=== PATIENT | male | born 1945 | race Caucasian/White ===

== ENCOUNTER → 2016-07-27 | Outpatient (CLI) | payer BC ==
[~2016-07-27] MED LIST: ATOR-54 PO; CHOL100010 PO; DILT-119 PO; FERR325T PO; HYDR25TA4 PO; LISI40TA PO; LOSA100T65 PO; OMEG10007 PO; RANI150C4 PO; SERT50TA PO; SUCR1TAB29 PO; WARF-246 PO; XRL10
[2016-07-27 17:44] LABS: BASO % 1.1 %; BASO ABS # 0.08 K/uL (0-0.2); COMPLETE YES; EOS % 3.1 %; HEMATOCRIT 39.9 % (42-52); IG% 0.3 %; MEAN CELL VOLUME 82.1 fL (80-100); MEAN CORPUSCULAR HEMOGLOBIN 25.9 pg (25-34); MEAN CORPUSCULAR HGB CONC 31.6 g/dl (32-36); MONO % 10.6 %; NEUT % 65.9 %; PLATELET COUNT 322 K/uL (130-400); RED BLOOD COUNT 4.86 M/uL (4.7-6.1); WHITE BLOOD COUNT 7.38 K/uL (4.8-10.8)
== END | disposition home or self-care (01) ==
LOC: C.LABBC 14:40
PROVIDERS: ATTEND Internal Medicine
DX: D64.9 Anemia, unspecified (principal)

== ENCOUNTER → 2016-09-10 | Outpatient (CLI) | payer BC ==
[~2016-09-10] MED LIST changes: +FERR1TAB62 PO; -FERR325T PO
[2016-09-10 14:56] LABS: BASO ABS # 0.06 K/uL (0-0.2); COMPLETE YES; EOS % 2.6 %; HEMATOCRIT 35.6 % (42-52); IG% 0.3 %; LYMPH % 18.7 %; LYMPH ABS # 1.13 K/uL (1.2-3.4); MEAN CELL VOLUME 77.6 fL (80-100); MEAN CORPUSCULAR HEMOGLOBIN 24.6 pg (25-34); MEAN CORPUSCULAR HGB CONC 31.7 g/dl (32-36); MEAN PLATELET VOLUME 10.1 fL (7.4-10.4); MONO % 10.1 %; NEUT % 67.3 %; PLATELET COUNT 397 K/uL (130-400); RED BLOOD COUNT 4.59 M/uL (4.7-6.1); WHITE BLOOD COUNT 6.05 K/uL (4.8-10.8)
[2016-09-10 15:22] LABS: ALT/SGPT 31 U/L (12-78); BLOOD UREA NITROGEN 19 mg/dl (7-18); BUN/CREATININE RATIO 16.9 (10-20); CALCIUM 8.9 mg/dl (8.5-10.1); CARBON DIOXIDE 30 mmol/L (21-32); CHLORIDE 106 mmol/L (98-107); GLUCOSE 106 mg/dl (70-99); POTASSIUM 3.6 mmol/L (3.5-5.1); SODIUM 142 mmol/L (136-145)
[2016-09-10 15:32] LABS: AST/SGOT 20 U/L (15-37); FERRITIN 19.1 ng/ml (8.0-388.0)
[2016-09-10 17:00] LABS: ESTIMATED AVERAGE GLUCOSE 114 mg/dl; HA1C FLAG Normal (Normal)
== END | disposition home or self-care (01) ==
LOC: C.LABBC 12:11
PROVIDERS: ATTEND Internal Medicine
DX: D64.9 Anemia, unspecified (principal); R73.9 Hyperglycemia, unspecified; E78.00 Pure hypercholesterolemia, unspecified; E03.9 Hypothyroidism, unspecified; R97.20 Elevated prostate specific antigen [PSA]

== ENCOUNTER → 2016-12-30 | Outpatient (CLI) | payer BC ==
[~2016-12-30] MED LIST changes: -FERR1TAB62 PO; +FERR325T PO
[2016-12-30 16:45] LABS: BASO % 0.6 %; BASO ABS # 0.04 K/uL (0-0.2); EOS % 2.8 %; HEMATOCRIT 26.4 % (42-52); IG% 0.3 %; MEAN CELL VOLUME 82.5 fL (80-100); MEAN CORPUSCULAR HGB CONC 30.3 g/dl (32-36); MEAN PLATELET VOLUME 9.9 fL (7.4-10.4); MONO % 7.4 %; NEUT % 68.9 %; PLATELET COUNT 365 K/uL (130-400); WHITE BLOOD COUNT 6.49 K/uL (4.8-10.8)
[2016-12-30 17:00] LABS: CHOLESTEROL/HDL RATIO 2.8; FERRITIN 24.6 ng/ml (8.0-388.0); PROSTATE SPECIFIC ANTIGEN 5.27 ng/ml (0.000-4.000)
[2016-12-30 17:26] LABS: COMPLETE YES; OVALOCYTES 1+
== END | disposition home or self-care (01) ==
LOC: C.LABPBG 14:19
PROVIDERS: ATTEND Internal Medicine
DX: D64.9 Anemia, unspecified (principal); R97.20 Elevated prostate specific antigen [PSA]; I48.91 Unspecified atrial fibrillation

== ENCOUNTER → 2017-01-03 | Outpatient (CLI) | payer BC ==
[2017-01-03 13:37] LABS: BASO % 0.5 %; BASO ABS # 0.03 K/uL (0-0.2); EOS % 3.2 %; IG% 0.7 %; LYMPH ABS # 0.88 K/uL (1.2-3.4); MEAN CELL VOLUME 84.4 fL (80-100); MEAN CORPUSCULAR HEMOGLOBIN 25.3 pg (25-34); MEAN PLATELET VOLUME 9.7 fL (7.4-10.4); NEUT % 72.6 %; PLATELET COUNT 388 K/uL (130-400); RED BLOOD COUNT 3.08 M/uL (4.7-6.1); WHITE BLOOD COUNT 5.86 K/uL (4.8-10.8)
[2017-01-03 14:04] LABS: COMPLETE YES; LARGE PLATELETS 1+; OVALOCYTES 1+; POLYCHROMASIA 1+
== END | disposition home or self-care (01) ==
LOC: C.LABBC 11:48
PROVIDERS: ATTEND Internal Medicine
DX: D64.9 Anemia, unspecified (principal)

== ENCOUNTER → 2017-01-10 | Outpatient (CLI) | payer BC ==
[2017-01-10 12:59] LABS: BASO % 0.7 %; BASO ABS # 0.04 K/uL (0-0.2); COMPLETE YES; HEMATOCRIT 30.6 % (42-52); IG% 0.2 %; LYMPH % 14.7 %; LYMPH ABS # 0.83 K/uL (1.2-3.4); MEAN CELL VOLUME 85.2 fL (80-100); MEAN CORPUSCULAR HEMOGLOBIN 25.1 pg (25-34); MEAN CORPUSCULAR HGB CONC 29.4 g/dl (32-36); MEAN PLATELET VOLUME 9.2 fL (7.4-10.4); MONO % 8.7 %; NEUT % 72.7 %; PLATELET COUNT 444 K/uL (130-400); RED BLOOD COUNT 3.59 M/uL (4.7-6.1); WHITE BLOOD COUNT 5.65 K/uL (4.8-10.8)
== END | disposition home or self-care (01) ==
LOC: C.LABPBG 11:10
PROVIDERS: ATTEND Internal Medicine
DX: D64.9 Anemia, unspecified (principal)

== ENCOUNTER → 2017-01-13 | Outpatient (CLI) | payer BC ==
--- NOTE | 2017-01-13 09:07 | DIAGNOSTIC IMAGING REPORT ---
DOUBLE CONTRAST BARIUM ESOPHAGRAM CLINICAL HISTORY: Hiatal hernia. COMPARISON STUDY: Chest CT dated 08/23/2013. TECHNIQUE: A standard air contrast barium esophagram is performed. Multiple spot images of the esophagus are acquired both upright and prone. FINDINGS: The patient swallowed barium and the barium pill without difficulty. The mucosal pattern is normal. There is no evidence of intrinsic or extrinsic mass lesion. No aspiration was seen. The gastroesophageal junction distended normally. There is moderate dysmotility in the mid to distal third. Gastroesophageal reflux was observed. There is a moderate sliding-type hiatal hernia, similar appearance to 2014 CT scan. Fluoroscopy time: 1.7 minutes. Fluoroscopic images: 23 IMPRESSION: 1. Moderate hiatal hernia. 2. Gastroesophageal reflux was observed. 3. Moderate dysmotility is noted in the distal esophagus. Electronically signed by: Severo Harmon M.D. 01/13/2017 9:05 AM Dictated Date/Time: 01/13/2017 9:02 AM
== END | disposition home or self-care (01) ==
LOC: C.RAD 08:26
PROVIDERS: ATTEND Surgery
DX: K44.9 Diaphragmatic hernia without obstruction or gangrene (principal); K21.9 Gastro-esophageal reflux disease without esophagitis; K22.4 Dyskinesia of esophagus

== ENCOUNTER 2017-01-26 09:24 | Inpatient (IN) | payer BC, OTHER ==
[2017-01-13 10:15] VITALS: BMI 37.0
--- NOTE | 2017-01-13 10:48 | PAT Medication Instructions ---
Service Date Jan 13, 2017. Current Home Medication List Atorvastatin (Lipitor), 20 MG PO QDD Diltiazem Hcl Ext Rel (Tiazac), 360 MG PO QDD Hydrochlorothiazide (Hctz), 25 MG PO QDD Lisinopril (Zestril), 40 MG PO QDD Losartan Potassium (Cozaar), 100 MG PO QDD Ranitidine Hcl (Ranitidine Hcl), 150 MG PO BID PRN Rivaroxaban (Xarelto), SEE NOTES Sertraline Hcl (Zoloft), 100 MG PO QDD Sucralfate (Carafate), 1 GM PO BID Medication Instructions For Your Scheduled Surgery - Check with surgeon/last repairer helper/PCP for instructions: Rivaroxaban (Xarelto), SEE NOTES - Hold the following medications the morning of surgery: Sucralfate (Carafate), 1 GM PO BID Ranitidine Hcl (Ranitidine Hcl), 150 MG PO BID PRN - Hold the following medications as scheduled the night before surgery: Losartan Potassium (Cozaar), 100 MG PO QDD Lisinopril (Zestril), 40 MG PO QDD - Take the following medications as scheduled the night before surgery: Sucralfate (Carafate), 1 GM PO BID Sertraline Hcl (Zoloft), 100 MG PO QDD Ranitidine Hcl (Ranitidine Hcl), 150 MG PO BID PRN Hydrochlorothiazide (Hctz), 25 MG PO QDD Diltiazem Hcl Ext Rel (Tiazac), 360 MG PO QDD Atorvastatin (Lipitor), 20 MG PO QDD If you have any questions please call us at [phone] or [phone] or [phone]
[2017-01-13 12:00] LABS: CALCIUM 8.8 mg/dl (8.5-10.1); CREATININE 1.1 mg/dl (0.60-1.40); POTASSIUM 3.5 mmol/L (3.5-5.1)
[2017-01-13 12:01] LABS: PROTHROMBIN TIME (PATIENT) 10.6 SECONDS (9.0-12.0)
[2017-01-13 12:45] LABS: HEMATOCRIT 34.1 % (42-52); MEAN CELL VOLUME 84.8 fL (80-100); MEAN CORPUSCULAR HEMOGLOBIN 24.4 pg (25-34); MEAN CORPUSCULAR HGB CONC 28.7 g/dl (32-36); MEAN PLATELET VOLUME 9.5 fL (7.4-10.4); PLATELET COUNT 448 K/uL (130-400); RED BLOOD COUNT 4.02 M/uL (4.7-6.1); WHITE BLOOD COUNT 5.57 K/uL (4.8-10.8)
[2017-01-13 13:33] LABS: BASO % 1.1 %; BASO ABS # 0.06 K/uL (0-0.2); COMPLETE YES; EOS % 1.8 %; HYPOCHROMIA PRESENT; IG% 0.2 %; LYMPH ABS # 0.89 K/uL (1.2-3.4); NEUT % 71.9 %
[2017-01-26] VITALS (9 sets, daily range): BP systolic 134–150; BP diastolic 83–93; PULSE 62–88; TEMP 36.4–36.7; O2SAT 88–99; Ht 175.3 cm; Wt 116.0 kg
[~2017-01-26] VITALS: Ht 175.3 cm; Wt 116.0 kg
[~2017-01-26 09:24] MED LIST changes: -CHOL100010 PO; -FERR325T PO; +LACTATED RINGER'S 1000ML 1,000 ML IV SCH; -LISI40TA PO; -OMEG10007 PO; -WARF-246 PO
[2017-01-26] MEDS ORDERED: FENTANYL CITRATE INJ 50 MCG/1 ML 2 ML VIAL ONE (10:22)
[2017-01-26] MEDS ORDERED: MIDAZOLAM HCL 1 MG/ML 2ML VIAL ONE (10:22)
--- NOTE | 2017-01-26 11:46 | History & Physical Bridge Note ---
H&P Re-Evaluation Bridge Note: I have examined the patient, reviewed the History & Physical and in the interval since the performance of the History & Physical I have noted the following changes of clinical significance: No changes noted
--- NOTE | 2017-01-26 12:06 | History & Physical Bridge Note ---
H&P Re-Evaluation Bridge Note: I have examined the patient, reviewed the History & Physical and in the interval since the performance of the History & Physical I have noted the following changes of clinical significance:Will perform an EGD for post- operative assessment.No changes noted
[2017-01-26] MEDS ORDERED: PHENYLEPHRINE 100MCG/ML 5ML SYR IV PRN (13:15)
[2017-01-26] MEDS ORDERED: ATROPINE SULFATE 0.1 MG/ML 5ML SYR IV PRN (13:15)
[2017-01-26] MEDS ORDERED: EpHEDrine SULFATE INJ 50 MG/ML AMP IV PRN (13:15)
[2017-01-26] MEDS ORDERED: ONDANSETRON INJ 2 MG/ML 2 ML VIAL IV PRN ×2 (13:15→19:00)
[2017-01-26] MEDS ORDERED: HYDROmorphone INJ 2 MG/ML SYR/VIAL IV PRN (13:15)
[2017-01-26] MEDS ORDERED: EpHEDrine SULFATE 50MG/5ML SYR ONE (13:35)
[2017-01-26] MEDS ORDERED: PROPOFOL IV EMULSION 10 MG/ML 20 ML VIAL IV ONE (13:35)
[2017-01-26] MEDS ORDERED: ROCURONIUM BROMIDE 10 MG/ML 5 ML VIAL ONE ×2 (13:35→18:40)
[2017-01-26] MEDS ORDERED: HYDROmorphone INJ 2 MG/ML SYR/VIAL ONE (13:36)
[2017-01-26] MEDS ORDERED: SODIUM CHLORIDE 0.9% INJ 10 ML VIAL ONE (13:36)
[2017-01-26] MEDS ORDERED: KETAMINE HCL INJ 50 MG/ML 10 ML VIAL ONE (13:54)
[2017-01-26] MEDS ORDERED: PHENYLEPHRINE HCL INJ 10 MG/ML VIAL ONE (18:43)
[2017-01-26] MEDS ORDERED: GLYCOPYRROLATE INJ 0.2 MG/ML VIAL ONE (18:43)
[2017-01-26] MEDS ORDERED: NEOSTIGMINE METHYLSULFATE 5 MG/5 ML SYR ONE (18:43)
[2017-01-26] MEDS ORDERED: RANITIDINE HCL 150 MG TAB PO PRN (19:00)
[2017-01-26] MEDS ORDERED: KETOROLAC TROMETHAMINE 15 MG/ML VIAL IV PRN (19:00)
--- NOTE | 2017-01-26 20:11 | Anesthesiology Progress Note ---
Anesthesia Post Op Note Date & Time Jan 26, 2017 at 20:11 Vital Signs Pain Intensity: 0 Vital Signs Past 12 Hours Date Time Temp Pulse Resp B/P (MAP) Pulse Ox O2 Delivery O2 Flow Rate FiO2 01/26/17 20:05 81 21 136/93 98 Oxymask 4 01/26/17 19:55 83 20 160/93 93 Oxymask 4 01/26/17 19:45 81 18 158/93 93 Oxymask 4 01/26/17 19:35 80 16 160/88 93 Oxymask 6 01/26/17 19:25 79 23 162/88 94 Oxymask 10 01/26/17 19:15 86 20 173/86 94 Oxymask 10 01/26/17 19:05 36.6 80 16 156/76 95 Oxymask 10 01/26/17 09:46 36.7 62 16 142/83 (102) 94 Room Air Notes Mental Status: alert / awake / arousable, participated in evaluation Pt Amnestic to Procedure: Yes Nausea / Vomiting: adequately controlled Pain: adequately controlled Airway Patency, RR, SpO2: stable & adequate BP & HR: stable & adequate Hydration State: stable & adequate Anesthetic Complications: no major complications apparent
[2017-01-26] MEDS ORDERED: CEFAZOLIN IV 2,000 MG in DEXTROSE 5% 50ML 100 ML IV SCH (22:00)
[2017-01-26] MEDS: D5W AND 1/2NSS 1,000 ML IV SCH (22:05)
[2017-01-26] MEDS: SERTRALINE HCL 50 MG TAB PO SCH (22:07)
[2017-01-26] MEDS: ACETAMINOPHEN IV 1,000 MG in EMPTY BAG 0 ML IV SCH (22:07)
[2017-01-26] MEDS: DOCUSATE SODIUM 100 MG CAP PO SCH (22:08)
[2017-01-26] MEDS: SUCRALFATE 1 GM TAB PO SCH (22:08)
[2017-01-26] MEDS: DILTIAZEM HCL (TIAzac) 180 MG CAPCR PO SCH (22:09)
[2017-01-26] MEDS: METOCLOPRAMIDE HCL INJ 5 MG/ML 2 ML VIAL IV. SCH (22:33)
[2017-01-26] MEDS: CEFAZOLIN IV 2,000 MG in DEXTROSE 5% 50ML 50 ML IV SCH (22:33)
--- NOTE | 2017-01-26 23:33 | OPERATIVE REPORT ---
DATE OF OPERATION: 01/26/2017 PREOPERATIVE DIAGNOSIS: Symptomatic hiatal hernia with gastroesophageal reflux disease. POSTOPERATIVE DIAGNOSIS: Same. PROCEDURE: Robotic-assisted laparoscopic Елена fundoplication with reduction of hiatal hernia. SURGEON: Dr. Mendez. PATIENT ACCOUNTS SPECIALIST: YUNI Colunga. ANESTHESIA: General anesthesia endotracheal intubation. INDICATION FOR PROCEDURE AND FINDINGS: This is a 71-year-old male, who has symptomatic esophageal ulcers from gastroesophageal reflux disease and has actually been anemic from this. He has been worked up and this has been determined to be his cause. I saw the patient in the office and we decided to proceed with a minimally invasive Елена fundoplication. His esophageal motility appeared normal. On 01/26/2015, the patient underwent an uncomplicated robot-assisted laparoscopic Елена fundoplication. His hiatal hernia was a bit larger than I thought from his barium swallow. I removed the sac. We had a tension-free anastomosis. He had a large diaphragmatic hernia; however, there was no tension in the posterior crura and I reapproximated these. I did an esophagogastroscopy at the conclusion of the case. I was able to get across the repair nicely and we saw no evidence of a leak. He tolerated it well and was extubated in the room with negligible blood loss. PROCEDURE: The patient brought to the operating room and laid in supine position. General anesthesia induced and endotracheal intubation was performed. After prepping and draping in the usual sterile fashion, we made 5 different incisions. A 5-mm incision for the liver retractor laterally and then I made two 12 mm incisions and two 28-mm incisions. I insufflated carbon dioxide. The patient had a laparoscopic cholecystectomy in the past, but I was surprised to see he really had no evidence of any adhesions. Before docking the robot, we placed the patient in a fairly good reverse Trendelenburg. We could see the GE junction nicely with the liver retractor. We then, using a Harmonic scalpel, took down the peritoneum around this and noted a very large hernia actually. He had a large amount of his stomach in there and we were able to reduce it nicely. Starting anteriorly along the right side, I identified the crura and divided the layers of the sac and then bluntly and sharply were able to bring the incision around anteriorly and I removed a very large sac. The patient also had a large amount of omentum, which was stuck to this, which was very difficult to get off. Finally, after meticulous dissection and removing of the hernia sac as well the gastroesophageal fat pad, we had identified the GE junction quite nicely. I put a single [id number] suture in the posterior crura and when reapproximating the left and right crura, I was surprised that this large hernia came together so easily with just 1 suture. I placed another suture, but I felt that it was too tight and so, I removed it and placed a simple suture, a bit closer to my first suture, a 0 silk. This appeared to be loose enough. I marked an area of 6 cm from the gastroesophageal junction and 6 cm from the greater curvature, anteriorly and posteriorly, with long sutures. I had freed up enough that I was easily able to bring the fundus around. There was no tension on this at all. I placed 2 sutures distally and included the esophagus in the first two and then I placed a simple fundus suture anteriorly and posteriorly. I then used 1 tacking suture of the wrap to the anterior diaphragm. The patient tolerated it well. I did do an esophagogastrostomy and coming down, I saw no evidence of any injuries. I was able to get across the repair quite nicely. I did not see evidence of a hiatal hernia. We did assess this for a leak by insufflating CO2 with the patient in Trendelenburg and warm saline around the GE junction. We saw no evidence of any bubbling. I then removed the esophagoscope. The patient tolerated it well. The two 12-mm incisions were closed with a #1 PDS with Endo Close. I then used a 4-0 Monocryl to close the skin edges of the incisions and we placed a topical glue on the skin. He tolerated it quite well. I attest to the content of the Intraoperative Record and any orders documented therein. Any exceptions are noted below. BHANU
[2017-01-27] VITALS (10 sets, daily range): BP systolic 118–129; BP diastolic 64–79; PULSE 69–106; TEMP 36.5–36.8; O2SAT 86–97
[2017-01-27] MEDS: ACETAMINOPHEN IV 1,000 MG in EMPTY BAG 0 ML IV SCH ×2 (05:35→13:40)
[2017-01-27] MEDS: METOCLOPRAMIDE HCL INJ 5 MG/ML 2 ML VIAL IV. SCH ×2 (05:36→13:43)
[2017-01-27] MEDS: CEFAZOLIN IV 2,000 MG in DEXTROSE 5% 50ML 50 ML IV SCH (05:58)
[2017-01-27] MEDS: D5W AND 1/2NSS 1,000 ML IV SCH (06:01)
[2017-01-27 06:37] LABS: COMPLETE YES; HEMATOCRIT 34.7 % (42-52); IG% 0.3 %; LYMPH % 3.6 %; LYMPH ABS # 0.36 K/uL (1.2-3.4); MEAN CELL VOLUME 81.8 fL (80-100); MEAN CORPUSCULAR HEMOGLOBIN 25.5 pg (25-34); MEAN CORPUSCULAR HGB CONC 31.1 g/dl (32-36); MEAN PLATELET VOLUME 9.5 fL (7.4-10.4); MONO % 8.3 %; NEUT % 87.8 %; PLATELET COUNT 250 K/uL (130-400); RED BLOOD COUNT 4.24 M/uL (4.7-6.1); WHITE BLOOD COUNT 9.87 K/uL (4.8-10.8)
[2017-01-27 07:11] LABS: CALCIUM 8.1 mg/dl (8.5-10.1); CREATININE 1.6 mg/dl (0.60-1.40); POTASSIUM 4.1 mmol/L (3.5-5.1)
[2017-01-27] MEDS: DOCUSATE SODIUM 100 MG CAP PO SCH ×2 (08:27→20:35)
[2017-01-27] MEDS: SUCRALFATE 1 GM TAB PO SCH ×2 (08:28→20:35)
--- NOTE | 2017-01-27 08:32 | DIAGNOSTIC IMAGING REPORT ---
CHEST ONE VIEW PORTABLE HISTORY: hypoxia COMPARISON: Chest 10/28/2015. FINDINGS: The heart remains mildly enlarged. Moderate hiatus hernia, unchanged. Bibasilar densities likely represent subsegmental atelectasis. No pleural effusions. No pneumothorax. Prominence of the superior mediastinum is likely due to the portable technique. This is similar to the prior study. IMPRESSION: 1. Stable mild cardiomegaly. 2. Moderate hiatus hernia. 3. Left basilar linear densities favor subsegmental atelectasis. Electronically signed by: Severo Holguin M.D. 01/27/2017 8:31 AM Dictated Date/Time: 01/27/2017 8:28 AM
[2017-01-27] MEDS ORDERED: ENOXAPARIN 40 MG/0.4 ML SYR SQ SCH (09:00)
--- NOTE | 2017-01-27 09:15 | DIAGNOSTIC IMAGING REPORT ---
(BARIUM SWALLOW) ESOPHAGUS CLINICAL HISTORY: Елена fundoplication COMPARISON STUDY: Barium swallow 01/13/2017. FLUOROSCOPY TIME: 1.7 minutes. 13 images submitted. FINDINGS: The patient swallowed Optiray 300 without difficulty. There is moderate esophageal dysmotility. The hiatal hernia has been reduced status post Елена fundoplication. There is moderate narrowing at the proximal esophagus at the site of fundoplication. This results in a column of contrast remaining within the mid to distal esophagus with slow transit time into the stomach. However, the esophagus is not significantly distended. No extraluminal contrast to suggest a leak. IMPRESSION: 1. No extraluminal contrast to suggest a leak status post Елена fundal complication. 2. There is moderate narrowing at the proximal esophagus at the site of fundoplication. This results in a column of contrast remaining within the mid to distal esophagus with slow transit time into the stomach. However, the esophagus is not significantly distended. Electronically signed by: Severo Holguin M.D. 01/27/2017 9:14 AM Dictated Date/Time: 01/27/2017 9:11 AM
--- NOTE | 2017-01-27 10:33 | Anesthesiology Progress Note ---
Anesthesia Post Op Note Date & Time Jan 27, 2017 at 10:32 Vital Signs Pain Intensity: 3.0 Vital Signs Past 12 Hours Date Time Temp Pulse Resp B/P (MAP) Pulse Ox O2 Delivery O2 Flow Rate FiO2 01/27/17 07:45 96 Nasal Cannula 3.0 01/27/17 07:20 36.8 82 16 120/72 (88) 96 Nasal Cannula 3.0 01/27/17 06:53 106 93 Nasal Cannula 3.0 01/27/17 04:00 36.7 85 16 126/79 (95) 97 Nasal Cannula 3.0 01/27/17 02:00 36.5 82 16 128/78 (95) 96 Nasal Cannula 3.0 01/26/17 23:40 Nasal Cannula 3.0 01/26/17 23:12 96 3.0 01/26/17 23:11 96 4.0 01/26/17 23:10 88 3.0 Notes Mental Status: alert / awake / arousable, participated in evaluation Pt Amnestic to Procedure: Yes Nausea / Vomiting: adequately controlled Pain: adequately controlled Airway Patency, RR, SpO2: stable & adequate BP & HR: stable & adequate Hydration State: stable & adequate Anesthetic Complications: no major complications apparent
--- NOTE | 2017-01-27 16:28 | PROGRESS NOTE ---
DATE: 01/27/2017 HISTORY OF PRESENT ILLNESS: Mr. Camilo was seen today 1 day after a robotic-assisted laparoscopic Елена fundoplication for symptomatic gastroesophageal reflux disease and esophageal ulcers with anemia. He looks fine except he is hypoxic. He has really not been able to get off of oxygen since the surgery. His chest x-ray shows just volume loss. He is not wheezing. He is tolerating clear liquids well. A barium swallow shows the wrap in good position and no evidence of extravasation. He had some appropriate narrowing at the repair site. I had a long talk with the patient and his this afternoon in the hospital. I am going to keep him another day and see if we can wean him off the oxygen. He may have to go home on it we will see. I am going to gently diurese him tonight also.
[2017-01-27] MEDS ORDERED: FUROSEMIDE INJ 10 MG in SYRINGE 0 ML IV SCH (17:00)
[2017-01-27] MEDS: DILTIAZEM HCL (TIAzac) 180 MG CAPCR PO SCH (17:27)
[2017-01-27] MEDS: SERTRALINE HCL 50 MG TAB PO SCH (17:28)
[2017-01-27] MEDS ORDERED: LOSARTAN POTASSIUM 50 MG TAB PO SCH (17:45)
[2017-01-27] MEDS ORDERED: ATORVASTATIN 20 MG TAB PO SCH (17:45)
[2017-01-28] VITALS (8 sets, daily range): BP systolic 121–134; BP diastolic 72–89; PULSE 75; TEMP 36.6–36.7; O2SAT 81–94
--- NOTE | 2017-01-28 06:57 | Clinical Documentation Query ---
CLINICAL DOCUMENTATION QUERY QUERY 1 OF 3 71 yo male presenting with a "hiatal hernia with anemia secondary to Yaya's ulcers" on H&P. In your clinical opinion is this patient being managed for: ( ) Yaya's ulcers with bleeding/hemorrhage ( ) Other explanation of clinical findings (Please Explain) ( ) Unable to determine (Please Define) ( X ) Need to Discuss ( ) Not Agree The medical record reflects the following clinical findings, treatment, and risk factors. Clinical Indicators:71 yo male presenting with a "hiatal hernia with anemia secondary to Yaya's ulcers" on H&P. Initial H&H documented were 9.8/34.1. Treatment:Robotic-assisted laparoscopic Елена fundoplication with reduction of hiatal hernia; monitor CBCs Risk Factors:Age, long-term anticoag therapy, anemia, new onset afib. Hx of PE, thrombocytosis QUERY 2 OF 3 In your clinical opinion is this patient being managed for: ( ) Acute kidney failure ( ) Other explanation of clinical findings (Please Explain) ( ) Unable to determine (Please Define) ( X ) Need to Discuss ( ) Not Agree The medical record reflects the following clinical findings, treatment, and risk factors. Clinical Indicators:01/13 baseline BUN/Creat 15/1.10 trending up post-operatively to 22/1.60 Treatment:IV fluids, serial Creatinine levels Risk Factors:Age, surgery, new onset A-Fib Acute Renal Failure criteria: * Abrupt (within 48 h) reduction in kidney function currently defined as an absolute increase in serum creatinine of 0.3 mg/dL or more (=26.4 umol/L) or *A percentage increase in serum creatinine of 50% or more (1.5-fold from baseline) or * A reduction in urine output (documented oliguria of < 0.5 mL/kg/h for >6 h) QUERY 3 OF 3 On 01/27, the patient is documented as being hypoxic, unable to wean off O2, and was treated with IV Lasix. In your clinical opinion is this patient being managed for: ( ) Acute preserved EF heart failure evidenced by hypoxia and bibasilar crackles, treated with IV Lasix ( X ) Other explanation of clinical findings (Please Explain) ( ) Unable to determine (Please Define) ( ) Need to Discuss ( ) Not Agree The medical record reflects the following clinical findings, treatment, and risk factors. Clinical Indicators:As above. pulse ox 86-88% on 3L O2. 2012 echo showed EF 65%, mild dilated right ventricle. 01/27 nursing assessment documents bilateral base crackles/diminished and 1+ edma to bilateral extremities Surgical day >3.5 litres + fluid balance. Treatment:Lasix IV, I/O Risk Factors:Age, interoperative fluid resuscitation, Please clarify and document your clinical opinion in the progress notes and discharge summary. Terms such as "probable", "suspected", "likely", "questionable", "possible", or "still to be ruled out" are acceptable. IF IN AGREEMENT, YOU MUST DOCUMENT ABOVE DIAGNOSTIC STATEMENT IN DAILY PROGRESS NOTES AND DISCHARGE SUMMARY. This document is not part of the patient's record. Thank You, Brandie Kimbrough RN [phone]
[2017-01-28] MEDS: SUCRALFATE 1 GM TAB PO SCH (08:54)
[2017-01-28] MEDS: DOCUSATE SODIUM 100 MG CAP PO SCH (08:54)
[2017-01-28] MEDS ORDERED: RIVAROXABAN 20 MG TAB PO SCH (09:00)
--- NOTE | 2017-01-28 09:07 | DIAGNOSTIC IMAGING REPORT ---
CHEST 2 VIEWS ROUTINE HISTORY: hypoxia COMPARISON: Chest 01/27/2017. FINDINGS: There are low lung volumes. No pneumothorax. The heart remains enlarged. Moderate hiatus hernia, unchanged. Left basilar linear densities are similar to the prior study and favor scarring. No new focal lung consolidations to suggest pneumonia. No evidence for pulmonary edema. Oral contrast within the bowel. A few mild anterior wedge-shaped compression deformities within the mid to lower thoracic spine. These are likely old. IMPRESSION: No significant change compared to the prior study. No acute process. Cardiomegaly and a moderate hiatus hernia again noted. Electronically signed by: Severo Holguin M.D. 01/28/2017 9:05 AM Dictated Date/Time: 01/28/2017 9:03 AM
[2017-01-28] MEDS ORDERED: OXYCODONE/ACETAMINOPHEN 5-325 TAB ONE (09:15)
[2017-01-28] MEDS ORDERED: OXYCODONE/ACETAMINOPHEN 5-325 TAB PO PRN (09:15)
[2017-01-28 11:01] LABS: HEMATOCRIT 36.9 % (42-52); MEAN CELL VOLUME 81.5 fL (80-100); MEAN CORPUSCULAR HEMOGLOBIN 24.7 pg (25-34); MEAN PLATELET VOLUME 9.8 fL (7.4-10.4); PLATELET COUNT 279 K/uL (130-400); RED BLOOD COUNT 4.53 M/uL (4.7-6.1); WHITE BLOOD COUNT 13.16 K/uL (4.8-10.8)
[2017-01-28 11:17] LABS: BUN/CREATININE RATIO 21.4 (10-20); CALCIUM 8.4 mg/dl (8.5-10.1); CREATININE 1.1 mg/dl (0.60-1.40); MEAN CORPUSCULAR HGB CONC 30.4 g/dl (32-36); PHOSPHORUS 1.8 mg/dl (2.5-4.9); POTASSIUM 3.8 mmol/L (3.5-5.1)
--- NOTE | 2017-01-28 17:12 | Discharge Instructions ---
Discharge Instructions Date of Service Jan 28, 2017. Admission Reason for Admission: Hiatal Hernia Discharge Discharge Diagnosis / Problem: Same Discharge Goals Goal(s): Learn about illness (Will need to stay on liquids / soft diet until I clear you.) Activity Recommendations Activity Limitations: as noted below Lifting Limitations: gradually increase as tolerated Exercise/Sports Limitations: gradually increase as tolerated May Resume Sexual Activity: when tolerated Shower/Bathe: tomorrow Driving or Machine Use: resume 3 days after discharge . Instructions / Follow-Up Instructions / Follow-Up Dr Mendez's office will call you and make an appointment to see you in two weeks. May shower starting tomorrow. No heavy lifting. Current Hospital Diet Patient's current hospital diet: Clear Liquid Diet Discharge Diet Recommended Diet: Full Liquid Diet (You may not eat ANYTHING which requires chewing.) Procedures Procedures Performed: Robotic Assisted Laparoscopic Елена Fundoplilcation; Repair of Hiatal Hernia with Esophagogastroduodenoscopy Pending Studies Studies pending at discharge: no Laboratory Results Lipid Panel Test 12/30/16 14:25 Range/Units Triglycerides Level 105 0-150 mg/dl Cholesterol Level 121 0-200 mg/dl HDL Cholesterol 44 mg/dl Cholesterol/HDL Ratio 2.8 LDL Cholesterol, Calculated 56 mg/dl Medical Emergencies . Who to Call and When: Medical Emergencies: If at any time you feel your situation is an emergency, please call 911 immediately. . Non-Emergent Contact Non-Emergency issues call your: Surgeon ([phone] Mendez) Call Non-Emergent contact if: you have a fever, temperature is above 101, your pain is worsening, wound has increased drainage, wound has increased redness, wound has increased pain [phone] Mendez . "Provider Documentation" section prepared by Tung Mendez. . VTE Core Measure Inpt VTE Proph given/why not?: Enoxaparin (Lovenox)SQ, Other Anticoagulation, SCD's
--- NOTE | 2017-01-28 20:31 | DISCHARGE SUMMARY ---
DISCHARGE DIAGNOSES: 1. Gastroesophageal reflux, hiatal hernia. 2. Yaya ulcer secondary to #1. 3. Renal insufficiency. 4. Hypoxemia secondary to hypoventilation. 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 He has been worked up completely. He has a hiatal hernia, has symptomatic esophageal reflux with these Yaya ulcers. I had a long talk with the patient and his in the office, we elected to proceed with a robotic Елена fundoplication. On 01/26/2017, the patient was brought to the operating room and underwent a robot-assisted laparoscopic Елена fundoplication. He had a fairly large hernia. I removed the sac in its entirety but this was a meticulous dissection. He had a large amount of omentum which was stuck up. We got all of this down. I then did posterior crural sutures x2. I then did a fairly loose wrap and it looked quite good under no tension. I did an esophagogastroscopy in the operating room and this went through the repair site easily. There was no evidence of hiatal hernia, it appeared to be completely reduced. The patient really had very little in the way of pain and wakened in fine fashion from his general anesthesia. However, he was hypoxic. On 3 liters, he was only satting in the low 90s. He was tolerating clear liquids. We got a barium swallow the morning after surgery, it looked quite good actually. The patient also had a bump in his creatinine from 1.1 to 1.6, been concerned about this and I watched him for a 2nd night and by the 2nd postoperative day, his saturations had improved and he was off the oxygen. His x-ray showed no infiltrate. I think he was suffering from hypoventilation, even though we were very aggressive in getting him to ambulate and working on his incentive spirometer. He never did have any wheezing. His incisions were clean, his bowel sounds were good. He has tolerated liquid clears quite nicely. I discharged him home on postoperative day 2. He had been weaned off his oxygen. He is really not having pain. I did not send him home with narcotics. I will see him back in the office in 2 weeks for followup. I gave him very strict diet instructions, clear liquids. I was quite happy with his response to this procedure.
== END 2017-01-28 18:00 | disposition home or self-care (01) | DRG 328 ==
LOC: C.ACU 09:24 → C.MSW 09:45 → ENRESERV 19:36
PROVIDERS: ADMIT Surgery; ATTEND Surgery
PROC: 0DV44ZZ Restriction of Esophagogastric Junction, Percutaneous Endoscopic Approach (ICD-10-PCS; principal; 2017-01-26 11:00)
PROC: 8E0W4CZ Robotic Assisted Procedure of Trunk Region, Percutaneous Endoscopic Approach (ICD-10-PCS; principal; 2017-01-26 11:00)
DX: K44.9 Diaphragmatic hernia without obstruction or gangrene (principal); K25.7 Chronic gastric ulcer without hemorrhage or perforation; K21.9 Gastro-esophageal reflux disease without esophagitis; D50.0 Iron deficiency anemia secondary to blood loss (chronic); N28.9 Disorder of kidney and ureter, unspecified; R06.89 Other abnormalities of breathing; R09.02 Hypoxemia; I48.0 Paroxysmal atrial fibrillation; I10 Essential (primary) hypertension; E78.00 Pure hypercholesterolemia, unspecified; F43.20 Adjustment disorder, unspecified; Z86.711 Personal history of pulmonary embolism; Z79.01 Long term (current) use of anticoagulants; Z88.5 Allergy status to narcotic agent; Z82.49 Family history of ischemic heart disease and other diseases of the circulatory system; Z82.3 Family history of stroke

== ENCOUNTER → 2017-08-09 | Outpatient (CLI) | payer BC ==
[~2017-08-09] MED LIST changes: -LACTATED RINGER'S 1000ML 1,000 ML IV SCH; -SUCR1TAB29 PO
--- NOTE | 2017-08-09 10:36 | DIAGNOSTIC IMAGING REPORT ---
(BARIUM SWALLOW) ESOPHAGUS CLINICAL HISTORY: 72 years-old Male presenting with K44.9 Hiatal herniaS/P LAP [id number], status post Елена fundoplication 6 months ago, cholecystectomy. TECHNIQUE: A standard air contrast barium esophagram is performed. Multiple spot images of the esophagus are acquired both upright and prone. COMPARISON: 01/27/2017. FINDINGS: The patient was able to ingest barium, however, the barium pill was held up at the gastroesophageal junction. Normal mucosal pattern. No evidence of intrinsic or extrinsic mass lesion. No aspiration observed. Few tertiary contractions visualized. Small hiatal hernia. Normal distention of the gastroesophageal junction. Fluoroscopy dosage (mGy): Not available. Fluoroscopy time: 2 minutes. Number of fluoroscopic spot images: 21. IMPRESSION: 1. Tertiary contractions of the esophagus suggests dysmotility, likely presbyesophagus. 2. Small hiatal hernia. The appearance could suggest slippage of the Елена fundoplication. Electronically signed by: Reynaldo Garcia M.D. 08/09/2017 10:35 AM Dictated Date/Time: 08/09/2017 9:07 AM
== END | disposition home or self-care (01) ==
LOC: C.RAD 08:32
PROVIDERS: ATTEND Surgery
DX: K44.9 Diaphragmatic hernia without obstruction or gangrene (principal)

== ENCOUNTER → 2017-08-25 | Outpatient (CLI) | payer BC | END | disposition home or self-care (01) | LOC: C.LABPBG 10:05 | PROVIDERS: ATTEND Internal Medicine Cardiovascular Disease | DX: E78.00 Pure hypercholesterolemia, unspecified (principal) ==

== ENCOUNTER → 2017-10-10 | Outpatient (CLI) | payer BC ==
[2017-10-10 13:04] LABS: MEAN CELL VOLUME 83.7 fL (80-100); MEAN CORPUSCULAR HEMOGLOBIN 27.2 pg (25-34); MEAN CORPUSCULAR HGB CONC 32.6 g/dl (32-36); MEAN PLATELET VOLUME 10.4 fL (7.4-10.4); PLATELET COUNT 296 K/uL (130-400); RED CELL DISTRIBUTION WIDTH CV 13.7 % (11.5-14.5); RED CELL DISTRIBUTION WIDTH SD 41.5 fL (36.4-46.3); WHITE BLOOD COUNT 6.07 K/uL (4.8-10.8)
== END | disposition home or self-care (01) ==
LOC: C.LABPBG 08:58
PROVIDERS: ATTEND Internal Medicine
DX: D64.9 Anemia, unspecified (principal); E78.00 Pure hypercholesterolemia, unspecified; E03.9 Hypothyroidism, unspecified

== ENCOUNTER 2021-08-04 08:23 | Observation (INO) ==
--- NOTE | 2021-03-02 10:52 | PAT Medication Instructions ---
Medication Instructions Date of Service March 02, 2021 Home Medications Medication Instructions Recorded cephalexin 500 mg tablet 500 mg PO ONCE #4 tab 07/18/19 atorvastatin 20 mg tablet 20 mg PO QDL #90 tab 04/28/20 hydrochlorothiazide 25 mg tablet 25 mg PO DAILY #90 tab 04/28/20 famotidine 40 mg tablet 40 mg PO DAILY #90 tab 07/09/20 diltiazem HCl 360 mg capsule,24 360 mg PO DAILY #90 cap 07/10/20 hr,extended release sertraline 100 mg tablet 150 mg PO DAILY #90 tab 08/04/20 losartan 100 mg tablet 100 mg PO DAILY #90 tab 01/26/21 rivaroxaban 20 mg tablet (Xarelto) 20 mg PO DAILY #90 tab 01/26/21 cephalexin 500 mg tablet 500 mg PO ONCE atorvastatin 20 mg tablet 20 mg PO QDL hydrochlorothiazide 25 mg tablet 25 mg PO DAILY famotidine 40 mg tablet 40 mg PO DAILY diltiazem HCl 360 mg capsule,24 hr,extended release 360 mg PO DAILY sertraline 100 mg tablet 150 mg PO DAILY losartan 100 mg tablet 100 mg PO DAILY rivaroxaban 20 mg tablet (Xarelto) 20 mg PO DAILY Continue as directed cephalexin 500 mg tablet 500 mg PO ONCE atorvastatin 20 mg tablet 20 mg PO QDL ASK your prescriber and surgeon rivaroxaban 20 mg tablet (Xarelto) 20 mg PO DAILY (must be off medication for at least 72 hours in order to get spinal anesthesia) DO NOT take the morning of surgery hydrochlorothiazide 25 mg tablet 25 mg PO DAILY losartan 100 mg tablet 100 mg PO DAILY Take morning of surgery With a small sip of water, OTHERWISE NOTHING TO EAT OR DRINK AFTER MIDNIGHT: famotidine 40 mg tablet 40 mg PO DAILY diltiazem HCl 360 mg capsule,24 hr,extended release 360 mg PO DAILY sertraline 100 mg tablet 150 mg PO DAILY Other Notes If you have any questions please call us at [phone] or [phone] or [phone] or [phone]
--- NOTE | 2021-03-04 09:52 | Anesthesiology Consultation ---
Date of Service March 04, 2021 Assessment & Plan (1) Encounter for pre-operative examination: Chart Review Chart Review: Acceptable Risk for Surgery (pending cardio response and preop Covid testing results ) and Patient seen in Pre Admission Testing -Did write note to cardiology regarding critically elevated PTT and if Xarelto adjustments needed. Per patient- he was recommended by cardio to hold Xarelto 72 hours prior to surgery. Surgeon is aware of elevated PTT. Will await cardio response in [facility] communication notes - Will recheck coags DOS Per PAT appt on 03/04/21, patient denies any recent travel or large group activities. No known Covid positive contacts or Covid related symptoms. No known Covid infection in the past 90 days. Pt is vaccinated for Covid.. Preop Covid testing scheduled 03/13/21 = will await results. Educated on importance of self quarantining, social distancing and wearing mask in public for the patient one week prior to surgery and after Covid testing done Last seen by cardio 01/01/21= The patient is stable from a cardiovascular standpoint. He demonstrates excellent control of his blood pressure and lipid values. He is tolerating rate control and long-term anticoagulation for his paroxysmal atrial fibrillation without difficulty. We have discussed the importance of routine exercise. Continue current medications. Follow up in six months Left TKA 05/16/18= Done under MAC. SAB at L3 with 3 attempts. History Surgery Operation Date: 03/17/21 09:10 Proposed Procedures p Right Total Knee Arthroplasty - Rudolph Andrew MD Height/Weight Height: 5 ft 10 in Weight: 107.5 kg Allergies Allergy/AdvReac Type Severity Reaction Status Date / Time morphine AdvReac Mild VOMITING Verified 02/24/21 14:37 Medications Home Medications Medication Instructions Recorded Confirmed Last Taken cephalexin 500 mg tablet 500 mg PO ONCE #4 tab 07/18/19 02/24/21 Unknown atorvastatin 20 mg tablet 20 mg PO QDL #90 tab 04/28/20 02/24/21 Unknown hydrochlorothiazide 25 mg tablet 25 mg PO DAILY #90 tab 04/28/20 02/24/21 Unknown famotidine 40 mg tablet 40 mg PO DAILY #90 tab 07/09/20 02/24/21 Unknown diltiazem HCl 360 mg capsule,24 360 mg PO DAILY #90 cap 07/10/20 02/24/21 Unknown hr,extended release sertraline 100 mg tablet 150 mg PO DAILY #90 tab 08/04/20 02/24/21 Unknown losartan 100 mg tablet 100 mg PO DAILY #90 tab 01/26/21 02/24/21 Unknown rivaroxaban 20 mg tablet (Xarelto) 20 mg PO DAILY #90 tab 01/26/21 02/24/21 Unknown Past Medical History Medical History Atrial fibrillation FOLLOWS WITH DR. GARCIA On Xarelto GERD (gastroesophageal reflux disease) Well controlled and stable History of melanoma S/p removal - no other treatments needed Hx of pancreatitis No recent issues Hyperlipidemia Hypertension Osteoarthritis Exercise / Class Metabolic Activity II 4-5 Yardwork/Stairs/Walk up hill (one flight of stairs- no chest pain or SOB ) Past Family History Family History Mother Hypertension Father Stroke Other No family history of adverse response to anesthesia Denies family history of Colon cancer Ovarian cancer Prostate cancer Myocardial infarction Breast cancer Past Surgical History Surgical History History of arthroscopy RT/LEFT KNEE History of cholecystectomy LAP History of colonoscopy History of esophagogastroduodenoscopy (EGD) History of herniorrhaphy UMBILICAL History of Елена fundoplication History of tonsillectomy and adenoidectomy History of tooth extraction History of total knee replacement LEFT S/P LASIK surgery of both eyes Past Anesthesia History No Hx of Anesthesia Complications and No Family Hx of Anesthesia Complications History of PONV No Hx of PONV and No Hx of Motion Sickness Social History Smoking Status: Never smoker Hx Alcohol Use: No substance use type: does not use Review of Systems Patient denies chest pain, shortness of breath, dyspnea on exertion, cough, wheezing, palpitations. No hx of seizures, stroke, [place], apnea/snoring. No hx of blood clots or blood transfusions Physical Exam Vital Signs VITALS BP 144/76 P 61 TEMP 98.1 SP02 96% RESP 16 Constitutional no acute distress ENMT Mouth: + small oral opening; no TMJ clicking Thyromental Distance: > or= 3.5 Finger Breadths (4.0) Mallampati Class: II (smaller airway ) Full upper denture Caps to front bottom teeth Missing bottom molars Neck neck extension not limited Respiratory normal respiratory effort; no respiratory distress Auscultation: lungs clear to auscultation bilaterally; no wheezes Cardiovascular Rate/Rhythm: regular rate and regular rhythm Heart Sounds: no murmur Vessels: no carotid bruit Musculoskeletal Spine: no pain with cervical ROM Extremities: extremities normal to inspection Psychiatric Orientation: alert Lab Results Anesthesia Preop Results Results Anesthesia Widget: WBC 6.63 K/uL (4.8-10.8) 03/04/21 Hgb 14.3 g/dL (14.0-18.0) 03/04/21 Hct 44.0 % (42-52) 03/04/21 Plt 284 K/uL (130-400) 03/04/21 Na 142 mmol/L (136-145) 03/04/21 K 3.4 mmol/L (3.5-5.1) L 03/04/21 Cl 108 mmol/L (98-107) H 03/04/21 CO2 29 mmol/L (21-32) 03/04/21 BUN 15 mg/dl (7-18) 03/04/21 Creat 1.01 mg/dl (0.6-1.4) 03/04/21 Glucose Level 106 mg/dl (70-99) H 03/04/21 PT 14.6 Seconds (9.0-12.0) H 03/04/21 PTT 45.6 Seconds (21.0-31.0) H* 03/04/21 INR 1.5 (0.9-1.1) H 03/04/21 Blood Type O Negative 03/04/21 Antibody Screen NEGATIVE 03/04/21 Testing Electrocardiogram Date: 03/04/21 Findings: + no change from (Apr 28, 2018 per cardio ) SB with 1st degree AVB at 59bpm. Right bundle branch block. Chest X-Ray Date: 03/04/21 Findings: + NAD Lungs are underinflated but clear.
--- NOTE | 2021-07-29 16:12 | Anesthesiology Consultation ---
Date of Service July 29, 2021 Assessment & Plan (1) Encounter for pre-operative examination: - cardiology office visit 06/25/2021 [place]: "...stable from a cardiovascular standpoint. He demonstrates excellent control of his blood pressure and cholesterol values. He continues to tolerate rate control and long-term anticoagulation for his paroxysmal atrial fibrillation without difficulty...hypertension, hypercholesterolemia, and his paroxysmal atrial fibrillation (January 2013, October 2015). Since his last visit, the patient has done well. He is active on a daily basis caring for his home and property...not experienced any exertional chest pain or limiting dyspnea. He further denies syncope, presyncope, PND, orthopnea, lower extremity edema, and claudication...There has been no recurrence of his atrial fibrillation to the best of his knowledge..." - PCP office visit 04/14/2021 [place]: "...a1c 6.0 in March 2021 and reviewed prediabetes which overall stable...Mild anemia hemoglobin 13.7 now normal With history of Yaya erosions as above. Status post repair. Did have knee replacement May 2018 which may account for the a slight lowering last year . Ferritin is normal. He has no symptoms and change to famotidine...ventral hernia and and obstructive symptoms...Watch for any signs of incarceration. Defers surgery for now. No tenderness...Total knee arthroplasty may 2018 he is feeling well. Good range of motion and he is active. He has no chest pain shortness breath or exertional signs or symptoms...Atrial fibrillation which is stable and rate controlled and he is anticoagulated. on xarelto Tolerating medications. Reviewed benefits risks Xarelto. No palpitations...Gastroesophageal reflux disease stable on famotidine..." PAT 03/04/2021 note "Cardiology recommended deferring elevated PTT levels to PCP. Pt seen by PCP 03/09/21= noted to have elevated PT/PTT on Eliquistook medication about 2 hours prior to lab workEliquis peaks at 1-2 hours post dosequestionable if this critically elevated levels. Recheck coagselevated but improved. Discussed with PCP and surgeonboth feel comfortable proceeding with surgery as these abnormalities can occasionally be seen in NOACs. Pt is aware to hold Eliquis 72 hours prior to surgery. "He is deemed acceptable risk and is cleared for surgery pending anesthesia approval." - COVID screening: Per crystal growing technician on 07/27/2021: Travel screen negative, no known COVID-19 positive contacts or current COVID-19 related symptoms in past 2 weeks. Patient vaccinated. Surgeon arranging preop COVID testing, scheduled 07/31/2021. Awaiting results. Chart Review Chart Review: Acceptable Risk for Surgery and Patient NOT seen in Pre Admission Testing History Surgery Operation Date: 08/04/21 10:40 Proposed Procedures p Right Total Knee Arthroplasty - Rudolph Andrew MD Surgery re-scheduled from 03/2021. Below included from PAT consultation 03/04/2021 for this procedure. Height/Weight Height: 5 ft 10 in Weight: 104.326 kg Allergies Allergy/AdvReac Type Severity Reaction Status Date / Time morphine AdvReac Mild VOMITING Verified 07/27/21 09:49 Medications Home Medications Medication Instructions Recorded Confirmed Last Taken atorvastatin 20 mg tablet 20 mg PO QDL #90 tab 04/27/21 07/27/21 Unknown amoxicillin 500 mg tablet 2,000 mg PO ONCE #4 tab 05/27/21 07/27/21 Unknown diltiazem HCl 360 mg capsule,24 360 mg PO QAM 07/27/21 07/27/21 Unknown hr,extended release famotidine 40 mg tablet 40 mg PO QAM 07/27/21 07/27/21 Unknown hydrochlorothiazide 25 mg tablet 25 mg PO QAM 07/27/21 07/27/21 Unknown losartan 100 mg tablet 100 mg PO QAM 07/27/21 07/27/21 Unknown rivaroxaban 20 mg tablet (Xarelto) 20 mg PO QAM 07/27/21 07/27/21 Unknown sertraline 100 mg tablet 150 mg PO QAM 07/27/21 07/27/21 Unknown Past Medical History Medical History Atrial fibrillation FOLLOWS WITH DR. GARCIA On Xarelto, no pacer GERD (gastroesophageal reflux disease) Well controlled and stable History of melanoma S/p removal - no other treatments needed Hx of pancreatitis No recent issues Hyperlipidemia Hypertension Osteoarthritis Exercise / Class Metabolic Activity Patient reported no CP or SOB with 1 FOS. Past Family History Family History Mother Hypertension Father Stroke Other No family history of adverse response to anesthesia Denies family history of Colon cancer Ovarian cancer Prostate cancer Myocardial infarction Breast cancer Past Surgical History Surgical History History of arthroscopy RT/LEFT KNEE History of cholecystectomy LAP History of colonoscopy History of esophagogastroduodenoscopy (EGD) History of herniorrhaphy UMBILICAL History of Елена fundoplication History of tonsillectomy and adenoidectomy History of tooth extraction History of total knee replacement LEFT S/P LASIK surgery of both eyes Past Anesthesia History No Hx of Anesthesia Complications and No Family Hx of Anesthesia Complications History of PONV No Hx of PONV and History of PONV Social History Smoking Status: Never smoker Do You Dip or Chew Tobacco: No Hx Alcohol Use: No Hx Substance Use: No substance use type: does not use Review of Systems "Patient denies chest pain, shortness of breath, dyspnea on exertion, cough, wheezing, palpitations. No hx of seizures, stroke, [place], apnea/snoring. No hx of blood clots or blood transfusions" Physical Exam Vital Signs VITALS BP 144/76 P 61 TEMP 98.1 SP02 96% RESP 16 Constitutional no acute distress ENMT Mouth: + small oral opening; no TMJ clicking Thyromental Distance: > or= 3.5 Finger Breadths (4.0) Mallampati Class: II (smaller airway ) Full upper denture Caps to front bottom teeth Missing bottom molars Neck neck extension not limited Respiratory normal respiratory effort; no respiratory distress Auscultation: lungs clear to auscultation bilaterally; no wheezes Cardiovascular Rate/Rhythm: regular rate and regular rhythm Heart Sounds: no murmur Vessels: no carotid bruit Musculoskeletal Spine: no pain with cervical ROM Extremities: extremities normal to inspection Psychiatric Orientation: alert Lab Results Anesthesia Preop Results Results Anesthesia Widget: WBC 7.07 K/uL (4.8-10.8) 07/27/21 Hgb 14.8 g/dL (14.0-18.0) 07/27/21 Hct 46.1 % (42-52) 07/27/21 Plt 299 K/uL (130-400) 07/27/21 Na 140 mmol/L (136-145) 07/27/21 K 3.9 mmol/L (3.5-5.1) 07/27/21 Cl 102 mmol/L (98-107) 07/27/21 CO2 32 mmol/L (21-32) 07/27/21 BUN 20 mg/dl (6-23) 07/27/21 Creat 1.08 mg/dl (0.6-1.4) 07/27/21 Glucose Level 93 mg/dl (70-99(Fasting)) 07/27/21 PT 10.3 Seconds (9.0-12.0) 07/27/21 INR 1.0 (0.9-1.1) 07/27/21 Blood Type O Negative 07/27/21 Antibody Screen NEGATIVE 07/27/21 Testing Electrocardiogram Date: 03/04/21 Findings: + no change from (Apr 28, 2018 per cardio ) SB with 1st degree AVB at 59bpm. Right bundle branch block. Chest X-Ray Date: 03/04/21 Findings: + NAD Lungs are underinflated but clear.
--- NOTE | 2021-08-01 11:51 | History and Physical Report ---
CHIEF COMPLAINT: Right knee pain and discomfort and stiffness. HISTORY OF PRESENT ILLNESS: The patient is a 76-year-old gentleman now about 3-1/2 years out from le ft knee replacement. He has done well on the left side. He continues to be bothered by right knee p ain and discomfort that has gradually gotten worse over the past several years. His knee has gotten s tiff. He has limited walking ability. The more he walks, the more it hurts. He limps more as the d ay goes on. He has been through extensive conservative treatment, just tired of that and wants to scott ve his knee fixed. Very happy with his left knee. PAST MEDICAL HISTORY: 1. Atrial fibrillation, on Xarelto. 2. Obesity with a BMI of 34. 3. Gastroesophageal reflux disease. PAST SURGICAL HISTORY: Includes: 1. Left knee replacement done on 05/16/2018. 2. Cholecystectomy. 3. Hiatal hernia surgery. ALLERGIES: MORPHINE, WHICH CAUSED NAUSEA. CURRENT MEDICATIONS: Include: 1. Losartan 100 mg. 2. Diltiazem 360 mg a day. 3. Hydrochlorothiazide 25 mg. 4. Famotidine 40 mg. 5. Sertraline 150 mg daily. 6. Lipitor 20 mg. 7. Xarelto 20 mg a day. SOCIAL HISTORY: A 75-year-old male. He is . He does not smoke. FAMILY HISTORY: Noncontributory. REVIEW OF SYSTEMS: Significant for atrial fibrillation on Xarelto. No diabetes. No neurological or vascular problems. No bleeding problems. No history of DVT or PE. PHYSICAL EXAMINATION: GENERAL: Shows a fairly large middle-aged male. Looks to be in reasonably good health. HEENT: Benign. NECK: Supple. No lymphadenopathy. LUNGS: Clear to auscultation. HEART: Has a regular rate and rhythm. ABDOMEN: Soft, nontender, nondistended. EXTREMITIES: Grossly neurovascularly intact except as follows. Examination of the right knee reveals a patient who ambulates independently. He does have a fairly s tiff knee with about a 15-degree flexion contracture and can only bend about 110 degrees. Small knee effusion. No pain with hip motion. Examination of the left knee reveals a well-healed incision. Knee alignment looks anatomic. Range o f motion is 0 to 120. X-RAYS: X-rays of the right knee reviewed. It shows right knee degenerative joint disease. He has got near complete loss of his medial compartment. He has got a little bit of tibial femoral subluxat ion. The left knee replacement looks to be in good position without problems. ASSESSMENT: A 76-year-old gentleman 3-1/2 years out from a left knee replacement with advanced right knee tricompartment degenerative joint disease. He has got a fairly stiff knee. He has failed cons ervative treatment and would like to have his right knee replaced. PLAN: We are going to proceed with right knee replacement. The risks and benefits of this procedure were explained to the patient include but not limited to DVT, PE, , infection, neurological inj ury, vascular injury, bleeding problem, pain, limited range of motion, stiffness, failure to relieve his symptoms, incomplete relief of symptoms, need for further surgery in the future, fracture, leg le ngth inequality, nerve palsy, etc. The patient understands and desires to proceed. Informed consent was obtained. We did talk about holding his Xarelto 3 days postop. We will start at 24 hours postop at a prophylac tic dose for 2 days and then full dose. Job ID: [id number]
[~2021-08-04 08:23] MED LIST changes: +ACETAMINOPHEN 500 MG TAB PO SCH; -ATOR-54 PO; +BUPIVACAINE 0.5 % 5 MG/1 ML PF 10ML VIAL ONE; +BUPIVACAINE LIPOSOME/PF 266 MG, BUPIVACAINE/EPINEPHRINE 50 ML, SODIUM CHLORIDE 0.9% 30 ... INFIL SCH; -DILT-119 PO; +FAMOTIDINE 20 MG TAB PO SCH; +GABAPENTIN 300 MG CAP PO SCH; -HYDR25TA4 PO; -LOSA100T65 PO; +LR 500ML BOLUS, THEN 15ML/HR IV SCH; +LR 60ML/HR IV SCH; +METOCLOPRAMIDE HCL 10 MG TABLET PO SCH; -RANI150C4 PO; +ROPIVACAINE 0.5% 5 MG/ML 30 ML VIAL ONE; -SERT50TA PO; +Scopolamine 1 MG TDSY TD SCH; +Scopolamine CHECK PATCH PLACEMENT SCH; +TRANEXAMIC ACID 1,000 MG **IV Intra-op IV SCH; +TRANEXAMIC ACID 1,000 MG **IV Pre-op IV SCH; -XRL10; +ceFAZolin 2000MG 2,000 MG/15 ML SYR IV SCH
--- NOTE | 2021-08-04 09:03 | History & Physical Bridge Note ---
Date of Service August 04, 2021 History & Physical Bridge Note I have examined the patient, reviewed the History & Physical and in the interval since the performance of the History & Physical I have noted the following changes of clinical significance: no changes noted
[2021-08-04] MEDS ORDERED: PROPOFOL IV EMULSION 10 MG/ML 20 ML VIAL IV ONE ×2 (09:32→12:01)
[2021-08-04] MEDS ORDERED: LIDOCAINE 2% 2 ML VIAL/AMP(20MG/ML) INFIL ONE (09:32)
[2021-08-04] MEDS ORDERED: MIDAZOLAM HCL 1 MG/ML 2ML VIAL ONE (09:33)
[2021-08-04] MEDS ORDERED: fentaNYL citrate 100 MCG/2 ML VIAL ONE (09:33)
[2021-08-04] MEDS ORDERED: fentaNYL citrate 100 MCG/2 ML VIAL IV PRN (10:49)
[2021-08-04] MEDS ORDERED: ATROPINE SULFATE 0.1 MG/ML 10ML SYR IV PRN (10:49)
[2021-08-04] MEDS ORDERED: HYDROmorphone INJ 1 MG/ML SYRINGE IV PRN (10:49)
[2021-08-04] MEDS ORDERED: ePHEDrine sulfate 50 MG/ML AMP IV PRN (10:49)
[2021-08-04] MEDS ORDERED: BUPIVACAINE/EPINEPHRINE 0.25% 1:200,000 30 ML VIAL ONE (11:19)
[2021-08-04] MEDS ORDERED: BUPIVACAINE LIPOSOME 1.3% 266 MG/20 ML VIAL ONE (11:19)
[2021-08-04] MEDS ORDERED: SODIUM CHLORIDE 0.9% PF 50 ML VIAL ONE (11:19)
[2021-08-04] MEDS ORDERED: ePHEDrine sulfate 50 MG/ML SYR ONE (11:45)
[2021-08-04] MEDS ORDERED: ePHEDrine sulfate 50 MG/ML AMP ONE (11:45)
[2021-08-04] MEDS ORDERED: PHENYLEPHRINE 100MCG/ML 5ML SYR ONE (11:45)
--- NOTE | 2021-08-04 13:29 | Post Operative Brief Note ---
PG Immediate Post Op with CF Date of Surgery August 04, 2021 Pre & Post Diagnosis Operation Date: 08/04/21 10:40 Pre-Op Diagnosis: Right Knee Osteoarthritis, Right Knee Pain Post-Op Diagnosis: Right Knee Osteoarthritis, Right Knee Pain I identified the patient and participated in the time-out.: Yes Procedure Operation Date: 08/04/21 10:40 Actual Procedures p Right Total Knee Arthroplasty(Right) - Rudolph Andrew MD Surgeon Rudolph Andrew MD Records Assistant Wale Warner PA-C Estimated Blood Loss 50 Findings Consistent with Post-Op Diagnosis Fluids 1400 cc Specimens Specimen Description: A. Right Knee Bone and Tissue Drains Luque Catheter Anesthesia Type Spinal MAC Complications none Disposition Accompanied Patient To Recovery: No
--- NOTE | 2021-08-04 14:04 | XRay Report ---
XR knee RT 1 or 2V routine HISTORY: 76 years-old Male Surgical Post Op right knee total joint arthroplasty COMPARISON: Knee radiographs 06/04/2019 TECHNIQUE: 2 views of the right knee FINDINGS: Right knee total joint arthroplasty. Anterior midline skin olinda are noted along with expected post operative soft tissue swelling and deep tissue air. No acute fracture or unexpected opaque foreign clifton dy. IMPRESSION: Right knee total joint arthroplasty with expected postoperative changes. ACT 112: Negative or not required by law. The above report was generated using voice recognition software. It may contain grammatical, syntax o r spelling errors. Electronically signed by: Sylvester Rossi M.D. 08/04/2021 2:03 PM
--- NOTE | 2021-08-04 14:21 | Anesthesiology Progress Note ---
Date of Service August 04, 2021 Anesthesia Post Procedure Vital Signs Vital Signs: Temp Pulse Pulse Resp BP BP Pulse Ox 08/04/21 14:20 72 16 107/58 L 97 08/04/21 14:10 36.3 C L 73 20 96/68 L 95 08/04/21 14:00 79 16 99/61 L 96 08/04/21 13:50 77 16 97/57 L 93 08/04/21 13:40 76 20 92/54 L 98 08/04/21 13:30 79 14 93/47 L 98 08/04/21 13:28 36.9 C 89 16 95/53 L 98 08/04/21 11:12 16 75/58 L 98 08/04/21 08:59 36.6 C 100 H 20 126/82 94 Transfer of Care Handoff Completed per policy Notes Mental Status: alert / awake / arousable Patient Amnestic to Procedure: Yes Nausea / Vomiting: adequately controlled Pain: adequately controlled Airway Patency, RR, SpO2: stable & adequate BP & HR: stable & adequate Hydration State: stable & adequate Neuraxial Anesthesia: was administered and sensory block is resolving Anesthetic Complications: no major complications apparent and Pt Satisfied with anesthetic care
[2021-08-04] MEDS ORDERED: oxyCODONE HCL IR 5 MG TAB (IMMEDIATE RELEASE) PO PRN (14:48)
[2021-08-04] MEDS ORDERED: ALUMINUM/MAGNESIUM SUSP 30 ML UDC PO PRN (14:48)
[2021-08-04] MEDS ORDERED: MAGNESIUM HYDROXIDE SUSP 30 ML UDC PO PRN (14:48)
[2021-08-04] MEDS ORDERED: ONDANSETRON 4 MG OD TAB PO PRN (14:48)
[2021-08-04] MEDS ORDERED: NALOXONE HCL 0.4 MG/1 ML VIAL/CARP IV PRN (14:48)
[2021-08-04] MEDS ORDERED: HYDROmorphone INJ 0.5 MG/0.5 ML SYR IV PRN (14:48)
[2021-08-04] MEDS ORDERED: ONDANSETRON INJ 2 MG/ML 2 ML VIAL IV PRN (14:48)
[2021-08-04] MEDS ORDERED: METOCLOPRAMIDE HCL INJ 5 MG/ML 2 ML VIAL IV PRN (14:48)
[2021-08-04] MEDS ORDERED: bisacodyL 10 MG SUPP PR PRN (14:48)
[2021-08-04] MEDS: ACETAMINOPHEN 500 MG TAB PO SCH ×2 (15:47→21:11)
[2021-08-04] MEDS: SODIUM CHLORIDE 0.9% 1000ML 1,000 ML IV SCH (15:47)
[2021-08-04] MEDS: Scopolamine CHECK PATCH PLACEMENT SCH ×2 (15:48→23:33)
[2021-08-04] MEDS: KETOROLAC TROMETHAMINE 15 MG/ML VIAL IV SCH ×2 (15:48→21:11)
[2021-08-04] MEDS: ASCORBIC ACID 500 MG TAB PO SCH (16:24)
--- NOTE | 2021-08-04 18:04 | Operative Report ---
PG Post Operative Report Pre & Post Diagnosis Operation Date: 08/04/21 10:40 Pre-Op Diagnosis: Right Knee Osteoarthritis, Right Knee Pain Post-Op Diagnosis: Right Knee Osteoarthritis, Right Knee Pain I identified the patient and participated in the time-out.: Yes Procedure Operation Date: 08/04/21 10:40 Actual Procedures p Right Total Knee Arthroplasty(Right) - Rudolph Andrew MD Surgeon Rudolph Andrew MD Contact Lens Blocker And Cutter Wale Warner PA-C Estimated Blood Loss 50 Findings Consistent with Post-Op Diagnosis Operative findings revealed advanced right knee DJD P had grade 4 disease with full-thickness cartilage loss in all 3 compartments. Fairly neutral alignment to his knee. Moderate-sized knee effusion. Fluids 1400 cc Specimens Right knee sent for pathology Drains None Anesthesia Type Spinal MAC Complications none Disposition Accompanied Patient To Recovery: No Indications Patient is a 76-year-old gentleman said a long history of knee problems. Is been through extensive conservative treatment the past. He had his left knee replaced several years ago and is done well from this. Continued be limited by right knee pain. He elected proceed with surgical treatment. Description of Procedure Operative implants consist of: 1. Biomet Vanguard size 70 right posterior stabilized femoral component. 2. Biomet size 79 tibial tray. 3. 12 mm posterior stabilized polyethylene insert. 4. 34 x 8 and half all polypatella. The patient was taken to the operating, identified, placed on the operating table supine position protectors were properly padded. IV antibiotics tried by anesthesia team. I-S spinal anesthetic and abductor canal block had provided holding area. A Luque catheter was placed in sterile fashion. Right thigh turn was then placed in the right lower extremities and prepped and draped in usual sterile fashion. The right leg was elevated exsanguinated with use of an Esmarch in terms playset 3 mmHg. An anterior approach to the right knee was then performed through longitudinal incision centered over the patella. Sharp dissection carried through subcutaneous tissue down the extensor mechanism. A medial parapatellar arthrotomy incision was made. Some subperiosteal dissection was given out medially. The fat pad was dissected from each patella tendon. The lateral patellofemoral ligament was released. Patella was subluxated laterally and the knee was flexed. The osteophyte taken off distal femur. ACL and PCL then rele ased and distal femur the tibia subluxated anteriorly. External tibial alignment guide was then placed in the interface the tibia and adjusted 14 mm medially. Proximal tibial cut was made remove about 2 mm of bone from most deficient aspect of the medial tibial plateau. Some osteophytes taken off medial and posterior medially. Tibia sized to a size 79. Attention drawn the femur. The distal femur exam with a sharp drop with intramedullary canal was suction. A right 6 degree valgus cutting guide was placed. The distal femoral cutting block was pinned in place. The distal femoral cut was made to take an additional 3 mm of bone off distal femur. The femur was then sized to a size 70. The AP cutting block was pinned parallel to the epicondylar axis which was 4 degrees of external rotation. The anterior cut, anterior chamfer, posterior cut, posterior chamfer cuts were made. The box cutting guide was placed in just slight lateral box cut was made. The knee was flexed. The remnants of the medial lateral menisci were excised. The osteophytes were taken off the posterior aspect of femur. A trial femoral component was placed. The tibial tray was pinned in maximum external rotation and the drill and stem punch were used to create defect in proximal tibia for the tibial tray. Knee was then trialed and the 12 mm insert fit most appropriately. He did have a flexion contracture preoperatively and I would prefer to leave the visit knee just a little bit loose. Attention drawn the patella. The patella was cleaned of also soft tissues. Patella thickness measured 23 mm in thickness was cut down to 14. Was sized to a size 34 patella. The lug holes were drilled for the 34 patella. The lateral osteophyte is moved. Patella button was placed. Knee was taken through range of motion patella tracked nicely with no thumbs test. Attention drawn to placing the permanent components. Nupathe all trial components were removed. Bone plug was placed in the distal femur limit blood loss. Double batch Palacos G cement was mixed. Biomet Vanguard size 70 right posterior stabilized femoral component, size 79 tibial tray, a 12 mm posterior stabilized polyethylene insert, and a 34 x 8 and half all polypatella then cemented in place. Knee was brought out into full extension until cement hardened. Final cement checkup then performed. The pericapsular tissues were injected with total 100 cc combination of 20 cc of Exparel, 30 cc normal saline, 50 cc of half percent Marcaine with epinephrine. Patient did receive 1 g tranexamic acid per the turn was then let down for final turn time of 59 minutes. Hemostasis reduced electrocautery. Extensor mechanism closed with combination 1 PDS suture #1 Vicryl suture in [id number] fashion. Extensor mechanism checked found to be intact the subcutaneous tissue then closed with 2 Dexon suture buried fashion skin was closed skin olinda. Leg was then cleaned and dried a sterile dressing was Xeroform, 4 x 4's, sterile cast padding, Alex bandage applied. Patient transferred to the recovery room in stable condition. The patient tolerated procedure well and there are no complications. Wale Warner, my physician licensed occupational therapy assistant, was present for the entire procedure. His assistance was essential and required for appropriate patient positioning, prepping and draping, surgical exposure, performing the technical details of the operation, placement the implants, closure of the wound, and placement of the sterile bandage. I attest to the content of the Intraoperative Record and any orders documented therein. Any exceptions are noted below.
[2021-08-04] MEDS: ceFAZolin 2000MG 2,000 MG/15 ML SYR IV SCH (18:31)
[2021-08-04] MEDS ORDERED: Nursing to Pharmacy Communication SCH (19:00)
[2021-08-04] MEDS ORDERED: TRANEXAMIC ACID / 0.7% NACL 1,000 MG/100 ML BAG IV SCH (19:30)
--- NOTE | 2021-08-04 19:52 | Progress Notes ---
DATE OF SERVICE: 08/04/2021. SUBJECTIVE: A 76-year-old gentleman, postoperative from a right knee replacement. He is doing prett y well. Really not having any pain yet. No chest pain or shortness of breath. Not feeling dizzy or lightheaded. OBJECTIVE: VITAL SIGNS: Temperature is 36.6. Vital signs are stable. PHYSICAL EXAMINATION: GENERAL: Shows a pleasant middle-aged male. He is sitting up and eating dinner. Looks comfortable. LUNGS: Clear to auscultation. HEART: Has a regular rate and rhythm. ABDOMEN: Soft, nontender, nondistended. EXTREMITIES: Grossly neurovascularly intact except as follows: Examination of the right leg reveals the dressing to be clean, dry and intact. Leg is well aligned. He can dorsiflex and plantarflex hi s foot appropriately. He has got brisk refill. X-RAYS: X-rays of the right knee from recovery room are reviewed. It shows a right cemented posteri or stabilized total knee arthroplasty. Components looked to be in good position. No signs of proble ms. ASSESSMENT: A 76-year-old gentleman with a history of atrial fibrillation postoperative from a right knee replacement. Doing well. He has been a little hypotensive, but asymptomatic. His pain is con trolled. PLAN: 1. DVT prophylaxis includes thigh-high TEDs, SCDs and we will start him back on his Xarelto tomorrow at a half dose for 48 hours. 2. PT, OT, weightbear as tolerated. Right total knee protocol. 3. Pain control, doing okay with current pain regimen. 4. IV antibiotics x24 hours. 5. Hypotension. We are going to hold his blood pressure meds tonight until blood pressure improves a bit. Encourage p.o. intake. 6. Disposition: Plan to discharge to home with some home health once adequately recovered. Job ID: [id number]
[2021-08-04] MEDS: DOCUSATE SODIUM 100 MG CAP PO SCH (20:43)
[2021-08-04] MEDS: TAPENTADOL HCL ER 50 MG TABCR PO SCH (20:43)
[2021-08-04] MEDS ORDERED: SENNA 8.6 MG TAB PO SCH (21:00)
[2021-08-05] MEDS: SODIUM CHLORIDE 0.9% 1000ML 1,000 ML IV SCH (00:42)
[2021-08-05] MEDS: ceFAZolin 2000MG 2,000 MG/15 ML SYR IV SCH (03:39)
[2021-08-05] MEDS: KETOROLAC TROMETHAMINE 15 MG/ML VIAL IV SCH ×2 (03:39→10:41)
[2021-08-05] MEDS: ACETAMINOPHEN 500 MG TAB PO SCH (05:11)
[2021-08-05 07:01] LABS: Hematocrit (blood only) 37.4 % (42-52); Hemoglobin 12.5 g/dL (14.0-18.0); Mean Corpuscular Hemoglobin 28.3 pg (25-34); Mean Corpuscular Hgb Conc 33.4 g/dL (32-36); Mean Corpuscular Volume 84.8 fL (80-100); Mean Platelet Volume 9.9 fL (7.4-10.4); Platelet Count 218 K/uL (130-400); RDW Coefficient of Variation 13.9 % (11.5-14.5); Red Blood Count 4.41 M/uL (4.7-6.1); White Blood Count 8.84 K/uL (4.8-10.8)
[2021-08-05 07:36] LABS: BUN Creatinine Ratio 22.8 (10-20); Creatinine Clr Calc Pharmacy 66.5 ml/min; Est GFR (Non-African American) 62.1 ml/min; Potassium 3.4 mmol/L (3.5-5.1)
[2021-08-05] MEDS ORDERED: dexAMETHasone 10 MG in SYRINGE 0 ML IV SCH (08:00)
[2021-08-05] MEDS: Scopolamine CHECK PATCH PLACEMENT SCH (08:45)
[2021-08-05] MEDS: ASCORBIC ACID 500 MG TAB PO SCH (08:45)
[2021-08-05] MEDS: DOCUSATE SODIUM 100 MG CAP PO SCH (08:46)
[2021-08-05] MEDS: TAPENTADOL HCL ER 50 MG TABCR PO SCH (08:53)
[2021-08-05] MEDS ORDERED: DOCUSATE SODIUM/SENNA 50/8.6MG TAB PO SCH (09:00)
[2021-08-05] MEDS ORDERED: FAMOTIDINE 40 MG TABLET PO SCH (09:00)
[2021-08-05] MEDS ORDERED: hydroCHLOROthiazide 25 MG TAB PO SCH (09:00)
[2021-08-05] MEDS ORDERED: TAMSULOSIN HCL 0.4 MG CAP PO SCH (09:00)
[2021-08-05] MEDS ORDERED: LOSARTAN POTASSIUM 50 MG TAB PO SCH (09:00)
[2021-08-05] MEDS ORDERED: SERTRALINE HCL 50 MG TABLET PO SCH (09:00)
[2021-08-05] MEDS ORDERED: MULTIVITAMIN TAB PO SCH (09:00)
[2021-08-05] MEDS ORDERED: dilTIAZem ER 180 MG CAPCR PO SCH (09:00)
[2021-08-05] MEDS ORDERED: POTASSIUM CHLORIDE CRTAB 20 MEQ TABCR PO ONE (09:09)
[2021-08-05] MEDS ORDERED: ATORVASTATIN 20 MG TAB PO SCH (11:30)
--- NOTE | 2021-08-05 11:47 | Progress Notes ---
DATE OF SERVICE: 08/05/2021. SUBJECTIVE: A 76-year-old gentleman now postop day 1 from right knee replacement. He is doing prett y well. Had a pretty good night. Pain is controlled. He has not been out of bed yet. No chest lashawn n or shortness of breath. Not feeling dizzy or lightheaded. OBJECTIVE: VITAL SIGNS: Temperature 36.4. Vital signs are stable. PHYSICAL EXAMINATION: GENERAL: Shows a pleasant middle-aged male. He is sitting up in bed and eating breakfast. Looks pr savage comfortable. EXTREMITIES: Examination of the right leg reveals the dressing to be clean, dry and intact. He can dorsiflex and plantarflex his foot appropriately. He has got brisk refill. He is neurologically int act. LABORATORY DATA: Hemoglobin is 12.5. Hematocrit 37.4. Potassium slightly low at 3.4. Electrolytes are otherwise stable. ASSESSMENT: A 76-year-old gentleman postoperative day 1 from right knee replacement. He is doing pr savage well. Pain is controlled. He is neurologically intact. Potassium is a little low and we will supplement that. PLAN: 1. DVT prophylaxis includes thigh-high TEDs, SCDs. He is going to be back on his Xarelto. We will put him on a prophylactic dose today, but when he discharges, he will go on full dose. 2. PT, OT, weightbear as tolerated. Right total knee protocol. 3. Pain control, doing well with current pain regimen. 4. Disposition: Plan to discharge to home with some home health likely later today if does okay in therapy. Job ID: [id number]
[2021-08-05] MEDS ORDERED: RIVAROXABAN 10 MG TABLET PO SCH (14:00)
--- NOTE | 2021-08-10 13:09 | Discharge Summary ---
Date of Service August 10, 2021 Discharge Data Procedures Performed Operation Date: 08/04/21 10:40 Actual Procedures p Right Total Knee Arthroplasty(Right) - Rudolph Andrew MD Hospital Course (1) Status post total right knee replacement: Elton is a 76 year old patient admitted on 08/04/21 and underwent total knee arthroplasty. He tolerated the procedure well and there were no complications. Transferred to the PACU post op and later to the orthopedic floor for further care. He was given ancef for antibiotic prophylaxis. He was also given TRISHA stockings, SCDs, and xarelto for DVT prophylaxis. Hemoglobin, hematocrit, and vital signs were monitored during his hospital stay and remained stable. Did not require any blood transfusions. There were no complications during his hospital stay. By post op day #1 the patient was tolerating a regular diet, pain was reasonably controlled with oral pain medicine, and he was participating in physical therapy. On post op day #1 the patient was discharged home and set up with home health care. He was given printed discharge instructions and new prescriptions were sent to his pharmacy. Continue physical therapy, weight bearing as tolerated. Continue TRISHA stockings. Follow up approximately 2 weeks post op or sooner if there are problems or concerns. Coding Level of Care Code None Diagnoses Status post total right knee replacement Z96.651
== END 2021-08-05 13:39 | disposition home health service (06) ==
LOC: 3N 08:23 → ASU 08:23